=== PATIENT | female | born 1980 | race African-American/Black ===

== ENCOUNTER 2020-11-13 13:24 | Emergency (ER) | payer MEDICAID ==
[~2020-11-13] VITALS: Ht 157.5 cm; Wt 86.0 kg
[2020-11-13 13:27] VITALS: BP 122/75
== END 2020-11-13 19:07 | disposition left against medical advice (07) ==
LOC: ER 13:24
DX: Z53.21 Procedure and treatment not carried out due to patient leaving prior to being seen by health care provider (principal)

== ENCOUNTER 2022-06-10 10:28 | Emergency (ER) | payer MEDICAID, OTHER ==
[~2022-06-10] VITALS: Ht 165.1 cm; Wt 91.0 kg
[2022-06-10 10:37] VITALS: BP 120/78
[2022-06-10] MEDS ORDERED: IBUPROFEN 600MG TABLET PO STA (11:15)
[2022-06-10] MEDS ORDERED: ACETAMINOPHEN 500MG TABLET PO ONE (11:30)
[2022-06-10 15:22] LABS: BASOPHILS % 0.8 % (0.0-2.0); EOSINOPHILS % 3.5 % (0.0-5.0); HEMATOCRIT. 32.5 % (36.0-48.0); HEMOGLOBIN. 10.2 g/dL (12.0-16.0); MEAN CORPUSCULAR HEMOGLOBIN 23.5 pg (28.0-32.0); MEAN CORPUSCULAR VOLUME 74.9 fL (81.0-99.0); MEAN PLATELET VOLUME 7.6 fl (7.4-10.4); NEUTROPHILS % 51.7 % (40.0-76.0); PLATELET 489 x1000/uL (130-400); RED BLOOD CELL COUNT 4.34 mill/uL (4.2-5.4); RED CELL DISTRIBUTION WIDTH 17.7 % (11.6-14.6)
[2022-06-10 15:23] LABS: CHLORIDE 108 mEq/L (98-107)
[2022-06-10 15:48] LABS: HCG SCREEN NEGATIVE
[2022-06-10] MEDS ORDERED: ACETAMINOPHEN 500MG TABLET PO NR (16:45)
[2022-06-10] MEDS ORDERED: ACET-2708 MT (17:01)
== END 2022-06-10 17:25 | disposition home or self-care (01) ==
LOC: ER 10:28
DX: R07.89 Other chest pain (principal); D64.9 Anemia, unspecified
CPT/HCPCS: 36415; 71045; 80053; 84484; 84703; 85025; 86850; 86900; 99284